=== PATIENT | female | born 1990 | race Two or more races ===

== ENCOUNTER 2018-09-20 18:45 | Emergency (ER) | payer MEDICAID ==
[~2018-09-20] VITALS: Ht 162.6 cm; Wt 52.2 kg
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
[2018-09-20 19:24] VITALS: BP 113/71
--- NOTE | 2018-09-20 19:24 | NUR ---
ED Nurse Note: Received report from Luli/RN, Charge. Pt was ETOH. no restrain was applied at this time. will continue to monitor.
--- NOTE | 2018-09-20 19:25 | NUR ---
ED Nurse Note: Pt was moved from bed 4 to treatment 1.
--- NOTE | 2018-09-20 19:57 | NUR ---
ED Nurse Note: Blood was collected and sent to Lab.
[2018-09-20 20:03] LABS: EOSINOPHILS % (AUTO) 0.2 % (0.0-3.0); HEMATOCRIT 42.6 % (37.0-47.0); HEMOGLOBIN 14.6 G/DL (12.0-16.0); LYMPHOCYTES % (AUTO) 42.5 % (20.0-45.0); MEAN CORPUSCULAR VOLUME 86 FL (80-99); MONOCYTES % (AUTO) 4.3 % (1.0-10.0); PLATELET COUNT 320 K/UL (150-450); RED BLOOD COUNT 4.93 M/UL (4.20-5.40); RED CELL DISTRIBUTION WIDTH 12.2 % (11.6-14.8); WHITE BLOOD COUNT 7.3 K/UL (4.8-10.8)
[2018-09-20 20:23] LABS: ANION GAP 11 mmol/L (5-15); BLOOD UREA NITROGEN 2 mg/dL (7-18); CALCIUM 8.7 MG/DL (8.5-10.1); CARBON DIOXIDE 27 MMOL/L (21-32); CHLORIDE 106 MMOL/L (98-107); CREATININE 1.1 MG/DL (0.55-1.30); POTASSIUM 3.4 MMOL/L (3.5-5.1); SODIUM 144 MMOL/L (136-145)
[2018-09-20 20:27] LABS: ALANINE AMINOTRANSFERASE 22 U/L (12-78); ALBUMIN 4.2 G/DL (3.4-5.0); ALBUMIN/GLOBULIN RATIO 1.2 (1.0-2.7); ALKALINE PHOSPHATASE 60 U/L (46-116); ASPARTATE AMINO TRANSFERASE 31 U/L (15-37); BILIRUBIN,TOTAL 0.3 MG/DL (0.2-1.0); CREATINE KINASE 273 U/L (26-308)
--- NOTE | 2018-09-20 20:40 | NUR ---
ED Nurse Note: Pt's boyfriend was at bed side, but left due to pt needed a F/c insertion.
--- NOTE | 2018-09-20 20:45 | NUR ---
ED Nurse Note: F/c cath was inserted and urine was collected and sent to Lab.
--- NOTE | 2018-09-20 21:45 | NUR ---
ED Nurse Note: Pt was very irritated and wanted to go home. pt tried to pull out the IV and F/c out by herself. Informed Dr. Celeste right away and charge nursed/Luli. Called security to stay with pt for her safety.
--- NOTE | 2018-09-20 21:50 | NUR ---
ED Nurse Note: Pt pulled out the IV herself. so d/c'd F/C for her safety. Informed Dr. Celeste.
--- NOTE | 2018-09-20 22:00 | NUR ---
ED Nurse Note: Pt is awake, fully alert and oriented x 4; fully ambulatory and ready to leave. Pt instructed to have her boy friend pick her up, for safety, multiple times.
[2018-09-20 22:15] VITALS: BP 114/72
--- NOTE | 2018-09-20 22:15 | NUR ---
ED Nurse Note: Pt not in room at this time.
--- NOTE | 2018-09-21 09:36 | Diagnostic Imaging Report ---
Indication: Headache Technique: Contiguous 5 mm thick transaxial imaging of the head obtained in a Siem[employer] Sensation [address] scanner. Soft tissue and bone windows generated. Automatic Exposure Control was utilized. Total Dose length Product (DLP): 1400.[address] Dose Index Volume (CTDIvol): 70.38 mGy Comparison: none Findings: The size and configuration of the cortical sulci, basal cisterns, and ventricles are within normal limits for age. There is no mass effect, midline shift, or edema identified. There is no evidence of acute hemorrhage or abnormal intra-axial or extra-axial fluid collections. The bones and soft tissues are unremarkable. Impression: No mass effect, edema or acute bleed. The CT scanner at [facility] is accredited by the [employer] and the scans are performed using dose optimization techniques as appropriate to a performed exam including Automatic Exposure control.
--- NOTE | 2018-09-21 11:02 | Diagnostic Imaging Report ---
Indication: Dyspnea Comparison: None A single view chest radiograph was obtained. Findings: Cardiomediastinal appearance is within normal limits for age. The lungs are clear. Pulmonary vascularity is appropriate. The diaphragmatic contour is smooth and costophrenic angles are sharp. No pleural effusions are identified. The bones are unremarkable. Impression: No acute findings
== END 2018-09-20 22:15 | disposition left against medical advice (07) ==
LOC: EDBD 18:45 → EMR 19:22
DX: F10.129 Alcohol abuse with intoxication, unspecified (principal); F15.10 Other stimulant abuse, uncomplicated; S50.12XA Contusion of left forearm, initial encounter; S50.11XA Contusion of right forearm, initial encounter; X58.XXXA Exposure to other specified factors, initial encounter; Y92.9 Unspecified place or not applicable
CPT/HCPCS: 36415; 51702; 70450; 71045; 80053; 80307; 80329; 81025; 82550; 85025; 93005; 96360; 99284